=== PATIENT | male | born 1955 | race Caucasian/White ===

== ENCOUNTER 2017-01-24 19:27 | Observation (INO) | payer BC ==
--- NOTE | 2017-01-24 20:34 | ER Document Report ---
ED Medical Screen (RME) - General Chief Complaint: Abdominal Pain Stated Complaint: ABDOMINAL PAIN Notes: Patient says he's experiencing abdominal pains, primarily on the left side of the abdomen starting before lunch today. It worsened after lunch. Pain is located primarily in the left lower quadrant. Patient had somewhat similar pain and was seen here a little over a year ago and had a CT scan of his abdomen at that time. It showed gallstones and diverticulosis, but no diverticulitis or acute process. Patient has not had any vomiting or diarrhea. Denies fever. Abdominal exam reveals some slight tenderness in the left lower quadrant. No masses. No bruits. TRAVEL OUTSIDE OF THE [place] IN LAST 30 DAYS: No - Related Data Allergies/Adverse Reactions: No Known Allergies Allergy (Verified 01/24/17 20:24) Past Medical History Renal/ Medical History: Denies: Hx Peritoneal Dialysis Physical Exam - Vital signs Vitals: Temp Pulse Resp BP Pulse Ox 98.3 F 75 17 131/64 H 99 01/24/17 20:13 01/24/17 20:13 01/24/17 20:13 01/24/17 20:13 01/24/17 20:13 Course - Vital Signs Vital signs: Temp Pulse Resp BP Pulse Ox 98.3 F 75 17 131/64 H 99 01/24/17 20:13 01/24/17 20:13 01/24/17 20:13 01/24/17 20:13 01/24/17 20:13
[2017-01-24 21:00] LABS: AMORPHOUS SEDIMENT,URINE TRACE /HPF; APPEARANCE,URINE SLIGHTLY-CLOUDY; BILIRUBIN,URINE NEGATIVE (NEGATIVE); GLUCOSE, URINE NEGATIVE (NEGATIVE); KETONES,URINE 20 mg/dL (NEGATIVE); LEUKOCYTE ESTERASE,URINE NEGATIVE (NEGATIVE); NITRITE,URINE NEGATIVE (NEGATIVE); PROTEIN,URINE NEGATIVE (NEGATIVE); URINE SPECIFIC GRAVITY 1.012; UROBILINOGEN,URINE NEGATIVE mg/dL (<2.0)
[2017-01-24 21:07] LABS: ALANINE AMINOTRANSFERASE 31 U/L (21-72); ALBUMIN 4.3 g/dL (3.5-5.0); ALKALINE PHOSPHATASE 46 U/L (38-126); ANION GAP 13 (5-19); ASPARTATE AMINO TRANSFERASE 27 U/L (17-59); BILIRUBIN,TOTAL 1.1 mg/dL (0.2-1.3); BLOOD UREA NITROGEN 17 mg/dL (7-20); CALCIUM 9.8 mg/dL (8.4-10.2); CARBON DIOXIDE 28 mmol/L (22-30); CHLORIDE 99 mmol/L (98-107); CREATININE RESULT 0.95 mg/dL (0.52-1.25); GLUCOSE 119 mg/dL (75-110); LIPASE 29.4 U/L (23-300); POTASSIUM 4.4 mmol/L (3.6-5.0); SODIUM 140.2 mmol/L (137-145); TOTAL PROTEIN 6.9 g/dL (6.3-8.2)
[2017-01-24 21:27] LABS: HEMATOCRIT 42.4 % (37.9-51.0); HEMOGLOBIN 14.7 g/dL (13.5-17.0); HGB HCT DIFFERENCE 1.7; MEAN CORPUSCULAR HEMOGLOBIN 32.3 pg (27.0-33.4); MEAN CORPUSCULAR HGB CONC 34.7 g/dL (32.0-36.0); MEAN CORPUSCULAR VOLUME 93 fl (80-97); RED BLOOD COUNT 4.55 10^6/uL (4.35-5.55); RED CELL DISTRIBUTION WIDTH 13.4 % (11.5-14.0); WHITE BLOOD COUNT 18.3 10^3/uL (4.0-10.5)
[2017-01-24 21:33] LABS: BAND NEUTROPHILS % (MANUAL) 1 % (3-5); BASOPHILS % (MANUAL) 0 % (0-2); EOSINOPHILS % (MANUAL) 0 % (0-6); LYMPHOCYTES % (MANUAL) 7 % (13-45); TOTAL CELLS COUNTED 100
[2017-01-24 21:34] LABS: RBC MORPHOLOGY COMMENT NORMO-CYTIC/CHROMIC
--- NOTE | 2017-01-24 23:36 | ER Document Report ---
ED General - General Chief Complaint: Abdominal Pain Stated Complaint: ABDOMINAL PAIN Time seen by provider: 23:35 Mode of Arrival: Ambulatory Information source: Patient TRAVEL OUTSIDE OF THE [place] IN LAST 30 DAYS: No - HPI Notes: 61-year-old male with a history of diverticulosis comes in with complaint of left sided abdominal pain came on earlier today and then seemed to progress to midline and and then may have briefly been worse on the right but now is more thick lower abdominal region gradually progressive over the course the day. The patient was seen earlier in triage and at that time described more left lower quadrant pain, although on my questioning now he states equal on both sides to the lower abdomen. The patient was given a IV and by mouth contrast and CT scan which shows acute appendicitis. The patient felt nauseated and vomited one time after his by mouth contrast, currently denies nausea. The patient has reported fever and chills with Reiger's earlier, repeat temp 99.7 now, but was afebrile in triage earlier. There is a history of diverticulosis and patient had last colonoscopy about 3 years ago which was negative although one 6 years ago showed polyps. Otherwise patient takes valacyclovir here and Viagra. - Related Data Allergies/Adverse Reactions: No Known Allergies Allergy (Verified 01/24/17 20:24) Past Medical History - General Information source: Patient - Social History Smoking Status: Never Smoker Frequency of alcohol use: None Drug Abuse: None Lives with: Family Family History: Reviewed & Not Pertinent Renal/ Medical History: Denies: Hx Peritoneal Dialysis Review of Systems - Review of Systems Notes: REVIEW OF SYSTEMS: CONSTITUTIONAL : Denies recent illness. EENT: Denies eye, ear, throat, or mouth pain or symptoms. Denies nasal or sinus congestion or discharge. Denies throat, tongue, or mouth swelling or difficulty swallowing. CARDIOVASCULAR: Denies chest pain. Denies palpitations or racing or irregular heart beat. Denies ankle edema. RESPIRATORY: Denies cough, cold, or chest congestion. Denies shortness of breath, difficulty breathing, or wheezing. GASTROINTESTINAL: Denies diarrhea. Denies blood in vomitus, stools, or per rectum. Denies black, tarry stools. Denies constipation. Reports last bowel movement earlier today was normal. GENITOURINARY: Denies difficulty urinating, painful urination, burning, frequency, blood in urine, or discharge. MUSCULOSKELETAL: Denies back or neck pain or stiffness. Denies joint pain or swelling. SKIN: Denies rash, lesions or sores. HEMATOLOGIC : Denies easy bruising or bleeding. LYMPHATIC: Denies swollen, enlarged glands. NEUROLOGICAL: Denies confusion or altered mental status. Denies passing out or loss of consciousness. Denies dizziness or lightheadedness. Denies headache. Denies weakness or paralysis or loss of use of either side. Denies problems with gait or speech. Denies sensory loss, numbness, or tingling. Denies seizures. PSYCHIATRIC: Denies anxiety or stress. Denies depression, suicidal ideation, or homicidal ideation. ALL OTHER SYSTEMS REVIEWED AND NEGATIVE. Dictation was performed using [employer] voice recognition software Physical Exam - Vital signs Vitals: Temp Pulse Resp BP Pulse Ox 98.3 F 75 17 131/64 H 99 01/24/17 20:13 01/24/17 20:13 01/24/17 20:13 01/24/17 20:13 01/24/17 20:13 - Notes Notes: PHYSICAL EXAMINATION: GENERAL: Well-appearing, well-nourished and in no acute distress. HEAD: Atraumatic, normocephalic. EYES: Pupils equal round and reactive to light, extraocular movements intact, sclera anicteric, conjunctiva are normal. ENT: Nares patent, oropharynx clear without exudates. Moist mucous membranes. NECK: Normal range of motion, supple without lymphadenopathy LUNGS: Breath sounds clear to auscultation bilaterally and equal. No wheezes rales or rhonchi. HEART: Regular rate and rhythm without murmurs ABDOMEN: Soft, tender lower abdominal region right equal to left. No guarding , no rebound. No masses appreciated. Musculoskeletal: Normal range of motion, no pitting or edema. No cyanosis. NEUROLOGICAL: Cranial nerves grossly intact. Normal speech, normal gait. Normal sensory, motor exams PSYCH: Normal mood, normal affect. SKIN: Warm, Dry, normal turgor, no rashes or lesions noted. Course - Re-evaluation Re-evalutation: 01/25/17 00:06 CT scan positive for appendicitis. Call was made to Dr. Mackey, who arrived promptly to see and evaluate the patient for admission and possible surgical intervention. Patient was kept nothing by mouth. The patient states he last ate broth and crackers at 1730, minimal amount. Patient was given IV Invanz. No obvious suggestion for perforation or acute diverticulitis or sepsis. Repeat temp 99.7. No evidence for AAA or renal stone or UTI. There is mild dehydration with ketosis, and IV normal saline bolus is given. 01/25/17 00:08 - Vital Signs Vital signs: Temp Pulse Resp BP Pulse Ox 99.7 F 75 17 131/64 H 99 01/24/17 23:55 01/24/17 20:13 01/24/17 20:13 01/24/17 20:13 01/24/17 20:13 - Laboratory Result Diagrams: 01/24/17 20:35 01/24/17 20:35 Laboratory results interpreted by me: 01/24/17 01/24/17 01/24/17 20:35 20:35 20:35 WBC 18.3 H Seg Neuts % (Manual) 83 H Band Neutrophils % 1 L Lymphocytes % (Manual) 7 L Abs Neuts (Manual) 15.4 H Abs Monocytes (Manual) 1.5 H Glucose 119 H Urine Ketones 20 H Critical Care Note - Critical Care Note Total time excluding time spent on procedures (mins): 33 Discharge - Discharge Clinical Impression: Dehydration Acute appendicitis Qualifiers: Acute appendicitis type: other Qualified Code(s): K35.89 - Other acute appendicitis Abdominal pain Qualifiers: Abdominal location: lower abdomen, unspecified Qualified Code(s): R10.30 - Lower abdominal pain, unspecified Vomiting Qualifiers: Vomiting type: unspecified Vomiting Intractability: non-intractable Nausea presence: with nausea Qualified Code(s): R11.2 - Nausea with vomiting, unspecified Fever Qualifiers: Fever type: unspecified Qualified Code(s): R50.9 - Fever, unspecified Admitting Provider: Surgicalist
[2017-01-25] MEDS ORDERED: ERTAPENEM SODIUM INJ 1 GM VIAL IV ONE (00:05)
[2017-01-25] MEDS ORDERED: NORMAL SALINE 1000 ML 1,000 ML IV ONE (00:07)
[2017-01-25] MEDS ORDERED: RINGERS SOLUTION,LACTATED 1,000 ML IV PRN (00:20)
--- NOTE | 2017-01-25 00:31 | PDOC H&P ---
History of Present Illness History of Present Illness: STAR RAHMAN is a 61 year old male presents to the emergency department complaining of acute onset abdominal pain onset mid afternoon after eating crackers and soup. Pain was primarily left sided more left upper quadrant that is the day and evening progressed the pain became more pelvic in nature. Patient has had no nausea or vomiting. Patient denies change in bowel habits. Patient has had several similar episodes last approximately 2 months ago, attributed to, but never formally worked up. Patient's last colonoscopy was 3 years ago, unremarkable. He has known history of cholelithiasis, diverticulosis but never admitted to the hospital for same. It was evaluated with CT scan of the abdomen and pelvis with oral and IV contrast which showed findings consistent with acute appendicitis. Surgery was consulted he was advised admission. Past Medical History Endocrine Medical History: Reports: Other - Patient admits to rectal dysfunction GI Medical History: Reports: Other - History: Polyps, diverticulosis. Past Surgical History Past Surgical History: Reports: Other - None so colonoscopy Social History Lives with: Family Smoking Status: Never Smoker Frequency of Alcohol Use: None Family History Family History: Reviewed & Not Pertinent Parental Family History Reviewed: Yes Children Family History Reviewed: Yes Sibling(s) Family History Reviewed.: Yes Medication/Allergy Allergies/Adverse Reactions: No Known Allergies Allergy (Verified 01/24/17 20:24) Review of Systems Constitutional: ABSENT: chills, fever(s), headache(s), weight gain, weight loss Eyes: ABSENT: visual disturbances Ears: ABSENT: hearing changes Cardiovascular: ABSENT: chest pain, dyspnea on exertion, edema, orthropnea, palpitations Respiratory: ABSENT: cough, hemoptysis Genitourinary: ABSENT: dysuria, hematuria Musculoskeletal: ABSENT: joint swelling Integumentary: ABSENT: rash, wounds Neurological: PRESENT: other - History of erectile dysfunction Psychiatric: ABSENT: anxiety, depression, homidical ideation, suicidal ideation Endocrine: PRESENT: other - History of prostatism Physical Exam Vital Signs: Temp Pulse Resp BP Pulse Ox 99.7 F 75 17 131/64 H 99 01/24/17 23:55 01/24/17 20:13 01/24/17 20:13 01/24/17 20:13 01/24/17 20:13 Intake & Output 01/23/17 01/24/17 01/25/17 06:59 06:59 06:59 Weight 73.1 kg General appearance: PRESENT: no acute distress Head exam: PRESENT: normocephalic Eye exam: PRESENT: EOMI Ear exam: PRESENT: TM's normal bilaterally Mouth exam: PRESENT: dry mucosa Neck exam: PRESENT: full ROM Cardiovascular exam: PRESENT: RRR Pulses: PRESENT: normal radial pulses GI/Abdominal exam: PRESENT: other - Minimal right lower quadrant tenderness no peritoneal signs no rigidity. Rectal exam: PRESENT: deferred Extremities exam: PRESENT: full ROM Neurological exam: PRESENT: oriented to person, oriented to place, oriented to time, oriented to situation Results Laboratory Results: 01/24/17 20:35 01/24/17 20:35 01/24/17 01/24/17 01/24/17 20:35 20:35 20:35 WBC 18.3 H RBC 4.55 Hgb 14.7 Hct 42.4 MCV 93 MCH 32.3 MCHC 34.7 RDW 13.4 Plt Count 155 Seg Neutrophils % Not Reportable Lymphocytes % Not Reportable Monocytes % Not Reportable Eosinophils % Not Reportable Basophils % Not Reportable Absolute Neutrophils Not Reportable Absolute Lymphocytes Not Reportable Absolute Monocytes Not Reportable Absolute Eosinophils Not Reportable Absolute Basophils Not Reportable Sodium 140.2 Potassium 4.4 Chloride 99 Carbon Dioxide 28 Anion Gap 13 BUN 17 Creatinine 0.95 Est GFR ( Amer) > 60 Est GFR (Non-Af Amer) > 60 Glucose 119 H Calcium 9.8 Total Bilirubin 1.1 AST 27 ALT 31 Alkaline Phosphatase 46 Total Protein 6.9 Albumin 4.3 Lipase 29.4 Urine Color YELLOW Urine Appearance SLIGHTLY-CLOUDY Urine pH 7.0 Ur Specific Plessis 1.012 Urine Protein NEGATIVE Urine Glucose (UA) NEGATIVE Urine Ketones 20 H Urine Blood NEGATIVE Urine Nitrite NEGATIVE Ur Leukocyte Esterase NEGATIVE Urine WBC (Auto) 1 Urine RBC (Auto) 1 Impressions: Abdomen/Pelvis CT 01/24/17 00:00 IMPRESSION: 1. Acute appendicitis. 2. Cholelithiasis. Colonic diverticulosis. Status: Image reviewed by ma - CT scan reviewed by general surgeon; excellent study, oral contrast noted. There is periappendiceal stranding thickened appendiceal wall, intraluminal fluid Assessment & Plan - Diagnosis (1) Acute appendicitis Qualifiers: Acute appendicitis type: unspecified acute appendicitis type Qualified Code(s): K35.80 - Unspecified acute appendicitis Is this a current diagnosis for this admission?: YesPlan: 1. Admission, IV fluids, nothing by mouth, IV antibiotics, and interval laparoscopic, possible open appendectomy. I explained mechanics of the operation as well as the risks benefits and alternatives including bleeding, infection, need for conversion to open procedure. We will set the operation for 600 am on January 25, 2017. 2. Will check preoperatively. (2) Cholelithiasis Is this a current diagnosis for this admission?: YesPlan: Gallstones are chronic, and do not appear to bE the cause of the patient's acute symptoms. (3) Diverticulosis Is this a current diagnosis for this admission?: YesPlan: The patient does not appear to have acute diverticulitis based on CT scan findings - Time Time Spent: 50 to 70 Minutes Critical Time spent with patient: Less than 15 minutes Anticipated discharge: Home - Inpatient Certification Medical Necessity: Need For IV Fluids, Need for IV Antibiotics, Need for Surgery
[2017-01-25] MEDS ORDERED: ONDANSETRON HCL INJ/PF 4 MG/2 ML SDV IV ONE (01:24)
[2017-01-25] MEDS ORDERED: MORPHINE SULFATE 10 MG/ML INJ IV ONE (01:25)
[2017-01-25] MEDS ORDERED: BUPIVACAINE HCL 0.25 % INJ/PF (2.5 MG/1 ML) 30 ML VIAL ONE (05:49)
[2017-01-25] MEDS ORDERED: FENTANYL CITRATE INJ/PF 100 MCG/2 ML AMPUL ONE (05:53)
[2017-01-25] MEDS ORDERED: HYDROMORPHONE HCL INJ/PF 2 MG/ML AMPULE ONE (05:53)
[2017-01-25] MEDS ORDERED: MIDAZOLAM 2 MG/2 ML INJ ONE (05:54)
[2017-01-25] MEDS ORDERED: EPHEDRINE SULFATE INJ 50 MG/1 ML AMPULE ONE (05:54)
[2017-01-25] MEDS ORDERED: PROPOFOL INJ 200 MG/20 ML VIAL IV ONE (05:55)
[2017-01-25] MEDS ORDERED: ACETAMINOPHEN 100 ML IV ONE (05:55)
[2017-01-25] MEDS ORDERED: IBUPROFEN INJ 800 MG/8 ML VIAL IV ONE (05:55)
[2017-01-25] MEDS ORDERED: DIPHENHYDRAMINE HCL 50 MG/ML VIAL IV PRN (06:44)
[2017-01-25] MEDS ORDERED: FENTANYL CITRATE INJ/PF 100 MCG/2 ML AMPUL IV PRN ×3 (06:44)
[2017-01-25] MEDS ORDERED: MORPHINE SULFATE 10 MG/ML INJ IV PRN (06:44)
[2017-01-25] MEDS ORDERED: PROMETHAZINE HCL INJ 25 MG/1 ML VIAL IV PRN (06:44)
--- NOTE | 2017-01-25 07:03 | Operative Report ---
Operative Report DATE OF SURGERY: 01/25/17 PREOPERATIVE DIAGNOSIS: Acute appendicitis POSTOPERATIVE DIAGNOSIS: Acute suppurative appendicitis OPERATION: Laparoscopic appendectomy SURGEON: STAR FITZGERALD ANESTHESIA: GA TISSUE REMOVED OR ALTERED: One appendix COMPLICATIONS: None ESTIMATED BLOOD LOSS: scant INTRAOPERATIVE FINDINGS: See below PROCEDURE: The patient was taken to the preop holding operating room after having voided and was put to sleep by general anesthesia with standard oral tracheal intubation. The abdomen was clipped of hair, prepped and draped in a sterile fashion. Surgical plan and surgical time out conducted. Skin was anesthetized below the umbilicus with 1% lidocaine. Wound made in the skin, Veress needle inserted the peritoneal cavity, pneumoperitoneum established. Veress needle was removed, 5 mm ports inserted a 5 mm flexible video endoscope was inserted. There was no evidence of intra-abdominal injury. Under direct visualization a supraumbilical midline 5 mm port was inserted, and a 12 mm left lower quadrant port was established. Patient was placed in slight Trendelenburg left lateral tilt position. Findings were significant for acute suppurative appendicitis. There was no evidence of abscess or gross perforation. His was grasped, and hernial attachments laterally and to the cecum were released with scissors. We then had the appendix freed up the space and mesoappendix. The mesoappendix and appendix were taken in 2 firings of the of the 45 mm Endo RICHARDSON stapler, blue load. The stapler was removed, an Endobag placed in the peritoneal cavity, and the appendix placed into the bag. Back and appendix were removed from the patient's body without spillage of contents and sent to pathology. We returned the peritoneal cavity checked the staple line and it was intact. There was no mechanical bleeding. We performed a limited, localized irrigation right at the operative site only. Patient was leveled out, all ports removed after pneumoperitoneum evacuated wounds closed with 0 Vicryl 3-0 Vicryl benzoin and Steri-Strips. She tolerated the procedure well, extubated and taken to the recovery room in stable condition.
[2017-01-25] MEDS ORDERED: LIDOCAINE 2% INJ-PF (20 MG/ML) 10 ML AMPUL ONE (10:29)
[2017-01-25] MEDS ORDERED: SUCCINYLCHOLINE CHLORIDE INJ 200 MG/10 ML VIAL ONE (10:29)
[2017-01-25] MEDS ORDERED: DEXAMETHASONE SOD PHOSPHATE INJ 4 MG/1 ML VIAL ONE (10:29)
[2017-01-25] MEDS ORDERED: METOCLOPRAMIDE HCL INJ/PF 10 MG/2 ML SDV ONE (10:29)
[2017-01-25] MEDS ORDERED: ONDANSETRON HCL INJ/PF 4 MG/2 ML SDV ONE (10:29)
[2017-01-25] MEDS ORDERED: ROCURONIUM BROMIDE INJ 50 MG/5 ML VIAL IV ONE (10:29)
[2017-01-25] MEDS: KETOROLAC TROMETHAMINE INJ/PF 30 MG/1 ML SDV IV SCH ×2 (13:55→18:23)
[2017-01-25] MEDS: MORPHINE SULFATE 10 MG/ML INJ IV PRN ×2 (13:56→17:58)
[2017-01-25] MEDS: ONDANSETRON HCL INJ/PF 4 MG/2 ML SDV IV PRN ×2 (13:57→22:09)
[2017-01-25] MEDS: AMPICILLIN SODIUM/SULBACTAM NA 3 GM in NORMAL SALINE 100 ML IV SCH ×2 (13:57→22:44)
[2017-01-25] MEDS: RINGERS SOLUTION,LACTATED 1,000 ML IV PRN (16:05)
[2017-01-25] MEDS: OXYCODONE-ACETAMINOPHEN 5-325 MG TABLET PO PRN (22:10)
[2017-01-26] MEDS: KETOROLAC TROMETHAMINE INJ/PF 30 MG/1 ML SDV IV SCH ×2 (00:42→06:20)
[2017-01-26] MEDS: RINGERS SOLUTION,LACTATED 1,000 ML IV PRN (00:45)
[2017-01-26] MEDS: AMPICILLIN SODIUM/SULBACTAM NA 3 GM in NORMAL SALINE 100 ML IV SCH (06:19)
[2017-01-26] MEDS: OXYCODONE-ACETAMINOPHEN 5-325 MG TABLET PO PRN (08:22)
[2017-01-26 08:28] VITALS: BP 107/66
--- NOTE | 2017-01-26 14:13 | DISCHARGE SUMMARY E ---
Discharge Summary NAME: STAR RAHMAN : 1955 AGE: 61Y ADMITTED: 01/25/2017 DISCHARGED: 01/26/2017 FINAL DIAGNOSES: Acute appendicitis. HOSPITAL COURSE: This is a 61-year-old male with abdominal pains and noted to have acute appendicitis on CAT scan. He then underwent a laparoscopic appendectomy done by Dr. Mackey on 01/25/17. Today he remained afebrile and the abdomen is soft with minimal tenderness. All the incision sites are clean and dry. He is passing flatus. He is tolerating his diet well. He will be discharged with followup in the surgical clinic in the next week or two. Prescription for Percocet was given to take q.6 h. p.r.n. for severe pains. DICTATING PHYSICIAN: RUKHSANA BLACKBURN M.D. [id number] PHY#: [id number] ID: [id number] JOB#: [id number] ACCT: [id number] cc:RUKHSANA BLACKBURN M.D., JAMES M.D. >
== END 2017-01-26 11:40 | disposition home or self-care (01) ==
LOC: ER 19:27 → EH 01-25 00:19 → UNDOADMOB 01-25 02:38 → EH 01-25 02:38 → 2N 01-25 08:36
PROC: 0DTJ4ZZ Resection of Appendix, Percutaneous Endoscopic Approach (ICD-10-PCS; principal; 2017-01-25 06:00)
DX: K35.80 Unspecified acute appendicitis (principal); K38.1 Appendicular concretions; K59.9 Functional intestinal disorder, unspecified; K57.30 Diverticulosis of large intestine without perforation or abscess without bleeding; K80.80 Other cholelithiasis without obstruction; E86.0 Dehydration; E88.89 Other specified metabolic disorders; Z86.010 Personal history of colon polyps; Z79.899 Other long term (current) drug therapy
CPT/HCPCS: 99291; 36415; 83690; 85025; 80053; 81001; 88304 ×2; 74177; 44970; G0378 ×3; J2250; J3490 ×2; J1100; J0295 ×2; J1335; J1885 ×2; J2765; J2270; J1170; J0330; J2405; J7030; J7120 ×2; J2704; J0131; J1741; 840; J3010

== ENCOUNTER → 2018-01-12 | Outpatient (CLI) | payer BC ==
--- NOTE | 2018-01-12 14:28 | RADIOLOGY REPORT (SQ) ---
EXAM DESCRIPTION: CHEST PA/LATERAL COMPLETED DATE/TIME: 01/12/2018 2:09 pm REASON FOR STUDY: CHEST PAIN, UNSPECIFIED COMPARISON: 10/25/2015 EXAM PARAMETERS: NUMBER OF VIEWS: two views TECHNIQUE: Digital Frontal and Lateral radiographic views of the chest acquired. RADIATION DOSE: NA LIMITATIONS: none FINDINGS: LUNGS AND PLEURA: No opacities, masses or pneumothorax. No pleural effusion. MEDIASTINUM AND HILAR STRUCTURES: No masses or contour abnormalities. HEART AND VASCULAR STRUCTURES: Heart normal size. No evidence for failure. BONES: No acute findings. HARDWARE: None in the chest. OTHER: No other significant finding. IMPRESSION: NO SIGNIFICANT RADIOGRAPHIC FINDING IN THE CHEST. TECHNICAL DOCUMENTATION: JOB ID: [id number] [employer]- All Rights Reserved Reading location - IP/workstation name: [email or web address]
== END ==
LOC: OD 13:54
PROVIDERS: ATTEND Internal Medicine Cardiovascular Disease
DX: R07.9 Chest pain, unspecified (principal)
CPT/HCPCS: 71046

== ENCOUNTER → 2018-02-01 | Outpatient (CLI) | payer BC ==
[2018-02-01 09:44] LABS: ALANINE AMINOTRANSFERASE 46 U/L (21-72); ALBUMIN 4.4 g/dL (3.5-5.0); ALKALINE PHOSPHATASE 40 U/L (38-126); ANION GAP 11 (5-19); ASPARTATE AMINO TRANSFERASE 30 U/L (17-59); BILIRUBIN,DIRECT 0.2 mg/dL (0.0-0.4); BILIRUBIN,TOTAL 0.7 mg/dL (0.2-1.3); BLOOD UREA NITROGEN 18 mg/dL (7-20); CALCIUM 10.2 mg/dL (8.4-10.2); CARBON DIOXIDE 32 mmol/L (22-30); CHLORIDE 103 mmol/L (98-107); CHOLESTEROL 122.17 mg/dL (0-200); CREATINE KINASE 42 U/L (55-170); GLUCOSE 92 mg/dL (75-110); POTASSIUM 4.7 mmol/L (3.6-5.0); SODIUM 145.5 mmol/L (137-145); TRIGLYCERIDES 67 mg/dL (<150)
[2018-02-01 09:55] LABS: DIRECT LDL 62 mg/dL (<100)
== END ==
LOC: OD 07:55
PROVIDERS: ATTEND Internal Medicine Cardiovascular Disease
DX: E78.5 Hyperlipidemia, unspecified (principal); R07.9 Chest pain, unspecified; R25.2 Cramp and spasm; Z79.899 Other long term (current) drug therapy
CPT/HCPCS: 36415; 80048; 80061; 80076; 82306; 82550; 83036; 83735; 84443

== ENCOUNTER → 2018-08-30 | Outpatient (CLI) | payer BC ==
[2018-08-30 08:20] LABS: ALANINE AMINOTRANSFERASE 49 U/L (21-72); ALBUMIN 4.1 g/dL (3.5-5.0); ALKALINE PHOSPHATASE 37 U/L (38-126); ASPARTATE AMINO TRANSFERASE 34 U/L (17-59); BILIRUBIN,TOTAL 0.5 mg/dL (0.2-1.3); CHOLESTEROL 121.99 mg/dL (0-200); TOTAL PROTEIN 6.9 g/dL (6.3-8.2); TRIGLYCERIDES 49 mg/dL (<150)
[2018-08-30 08:31] LABS: DIRECT LDL 88 mg/dL (<100)
== END ==
LOC: OD 07:35
PROVIDERS: ATTEND Internal Medicine Cardiovascular Disease
DX: E78.5 Hyperlipidemia, unspecified (principal); Z79.899 Other long term (current) drug therapy
CPT/HCPCS: 36415; 80061; 80076

== ENCOUNTER → 2019-03-01 | Outpatient (CLI) | payer BC ==
[2019-03-01 08:45] LABS: ALANINE AMINOTRANSFERASE 52 U/L (21-72); ALBUMIN 4.1 g/dL (3.5-5.0); ALKALINE PHOSPHATASE 41 U/L (38-126); ASPARTATE AMINO TRANSFERASE 31 U/L (17-59); BILIRUBIN,DIRECT 0.2 mg/dL (0.0-0.4); BILIRUBIN,TOTAL 0.8 mg/dL (0.2-1.3); TOTAL PROTEIN 6.7 g/dL (6.3-8.2); TRIGLYCERIDES 67 mg/dL (<150)
[2019-03-01 08:56] LABS: DIRECT LDL 90 mg/dL (<100)
== END ==
LOC: OD 07:45
PROVIDERS: ATTEND Internal Medicine Cardiovascular Disease
DX: E78.5 Hyperlipidemia, unspecified (principal); R94.5 Abnormal results of liver function studies; Z79.899 Other long term (current) drug therapy
CPT/HCPCS: 36415; 80061; 80076

== ENCOUNTER → 2019-04-11 | Outpatient (CLI) | payer BC ==
[2019-04-11 08:39] LABS: ALANINE AMINOTRANSFERASE 42 U/L (21-72); ALBUMIN 4.3 g/dL (3.5-5.0); ALKALINE PHOSPHATASE 38 U/L (38-126); ASPARTATE AMINO TRANSFERASE 34 U/L (17-59); BILIRUBIN,DIRECT 0.2 mg/dL (0.0-0.4); BILIRUBIN,TOTAL 0.7 mg/dL (0.2-1.3); CHOLESTEROL 122.08 mg/dL (0-200); TRIGLYCERIDES 60 mg/dL (<150)
[2019-04-11 08:50] LABS: DIRECT LDL 70 mg/dL (<100)
== END ==
LOC: OD 07:24
PROVIDERS: ATTEND Internal Medicine Cardiovascular Disease
DX: E78.5 Hyperlipidemia, unspecified (principal); R94.5 Abnormal results of liver function studies
CPT/HCPCS: 36415; 80061; 80076

== ENCOUNTER → 2019-07-18 | Outpatient (CLI) | payer OTHER ==
[2019-07-18 09:09] LABS: ALBUMIN 4.1 g/dL (3.5-5.0); ALKALINE PHOSPHATASE 35 U/L (38-126); ASPARTATE AMINO TRANSFERASE 36 U/L (17-59); BILIRUBIN,TOTAL 0.6 mg/dL (0.2-1.3); CHOLESTEROL 122.57 mg/dL (0-200); CREATINE KINASE 44 U/L (55-170); TRIGLYCERIDES 71 mg/dL (<150)
[2019-07-18 09:20] LABS: DIRECT LDL 76 mg/dL (<100)
== END ==
LOC: OD 07:40
PROVIDERS: ATTEND Physician Assistant
DX: E78.5 Hyperlipidemia, unspecified (principal); Z79.899 Other long term (current) drug therapy
CPT/HCPCS: 36415; 80061; 80076; 82550

== ENCOUNTER → 2019-10-31 | Outpatient (CLI) | payer OTHER ==
[2019-10-31 08:59] LABS: ALBUMIN 4.1 g/dL (3.5-5.0); ALKALINE PHOSPHATASE 32 U/L (38-126); ANION GAP 7 (5-19); ASPARTATE AMINO TRANSFERASE 31 U/L (17-59); BILIRUBIN,DIRECT 0.2 mg/dL (0.0-0.4); BILIRUBIN,TOTAL 0.6 mg/dL (0.2-1.3); BLOOD UREA NITROGEN 26 mg/dL (7-20); CALCIUM 9.5 mg/dL (8.4-10.2); CARBON DIOXIDE 30 mmol/L (22-30); CHLORIDE 104 mmol/L (98-107); CHOLESTEROL 132.91 mg/dL (0-200); GLUCOSE 86 mg/dL (75-110); POTASSIUM 4.9 mmol/L (3.6-5.0); TRIGLYCERIDES 46 mg/dL (<150)
[2019-10-31 09:13] LABS: DIRECT LDL 88 mg/dL (<100)
== END ==
LOC: OD 07:28
PROVIDERS: ATTEND Physician Assistant
DX: E78.5 Hyperlipidemia, unspecified (principal); R25.2 Cramp and spasm; Z79.899 Other long term (current) drug therapy
CPT/HCPCS: 36415; 80048; 80061; 80076; 83735

== ENCOUNTER → 2019-11-27 | Outpatient (CLI) | payer OTHER ==
[2019-11-27 08:55] LABS: ALBUMIN 4.1 g/dL (3.5-5.0); ALKALINE PHOSPHATASE 30 U/L (38-126); ASPARTATE AMINO TRANSFERASE 34 U/L (17-59); BILIRUBIN,DIRECT 0.2 mg/dL (0.0-0.4); BILIRUBIN,TOTAL 0.8 mg/dL (0.2-1.3); CHOLESTEROL 210.69 mg/dL (0-200); TOTAL PROTEIN 7.2 g/dL (6.3-8.2); TRIGLYCERIDES 83 mg/dL (<150)
[2019-11-27 09:07] LABS: DIRECT LDL 162 mg/dL (<100)
== END ==
LOC: OD 08:00
PROVIDERS: ATTEND Internal Medicine Cardiovascular Disease
DX: E78.5 Hyperlipidemia, unspecified (principal); R94.5 Abnormal results of liver function studies
CPT/HCPCS: 36415; 80061; 80076

== ENCOUNTER → 2020-01-09 | Outpatient (CLI) | payer OTHER ==
[2020-01-09 08:58] LABS: ALBUMIN 4.4 g/dL (3.5-5.0); ALKALINE PHOSPHATASE 37 U/L (38-126); ASPARTATE AMINO TRANSFERASE 35 U/L (17-59); BILIRUBIN,DIRECT 0.1 mg/dL (0.0-0.4); BILIRUBIN,TOTAL 0.7 mg/dL (0.2-1.3); CHOLESTEROL 151.02 mg/dL (0-200); TOTAL PROTEIN 7.5 g/dL (6.3-8.2); TRIGLYCERIDES 59 mg/dL (<150)
[2020-01-09 09:09] LABS: DIRECT LDL 96 mg/dL (<100)
== END ==
LOC: OD 07:32
PROVIDERS: ATTEND Internal Medicine Cardiovascular Disease
DX: R94.5 Abnormal results of liver function studies (principal); E78.5 Hyperlipidemia, unspecified
CPT/HCPCS: 36415; 80061; 80076

== ENCOUNTER → 2020-04-09 | Outpatient (CLI) | payer OTHER ==
[2020-04-09 08:59] LABS: ALBUMIN 4.1 g/dL (3.5-5.0); ALKALINE PHOSPHATASE 35 U/L (38-126); ASPARTATE AMINO TRANSFERASE 29 U/L (17-59); BILIRUBIN,TOTAL 0.6 mg/dL (0.2-1.3); CHOLESTEROL 144.12 mg/dL (0-200); TOTAL PROTEIN 6.5 g/dL (6.3-8.2); TRIGLYCERIDES 71 mg/dL (<150)
[2020-04-09 09:10] LABS: DIRECT LDL 90 mg/dL (<100)
== END ==
LOC: OD 07:38
PROVIDERS: ATTEND Internal Medicine Cardiovascular Disease
DX: E78.5 Hyperlipidemia, unspecified (principal); R94.5 Abnormal results of liver function studies
CPT/HCPCS: 36415; 80061; 80076

== ENCOUNTER → 2020-10-01 | Outpatient (CLI) | payer OTHER ==
[2020-10-01 09:34] LABS: ALKALINE PHOSPHATASE 37 U/L (38-126); ANION GAP 7 (5-19); ASPARTATE AMINO TRANSFERASE 33 U/L (17-59); BILIRUBIN,TOTAL 0.6 mg/dL (0.2-1.3); BLOOD UREA NITROGEN 26 mg/dL (7-20); CALCIUM 9.7 mg/dL (8.4-10.2); CARBON DIOXIDE 29 mmol/L (22-30); CHLORIDE 104 mmol/L (98-107); CHOLESTEROL 154.25 mg/dL (0-200); GLUCOSE 88 mg/dL (75-110); POTASSIUM 4.4 mmol/L (3.6-5.0); TOTAL PROTEIN 7.1 g/dL (6.3-8.2); TRIGLYCERIDES 61 mg/dL (<150)
[2020-10-01 09:45] LABS: DIRECT LDL 95 mg/dL (<100)
== END ==
LOC: OD 07:51
PROVIDERS: ATTEND Internal Medicine Cardiovascular Disease
DX: E78.5 Hyperlipidemia, unspecified (principal); R25.2 Cramp and spasm; R94.5 Abnormal results of liver function studies; Z79.899 Other long term (current) drug therapy
CPT/HCPCS: 36415; 80048; 80061; 80076